=== PATIENT | male | born 1970 | race Caucasian/White ===

== ENCOUNTER 2022-02-16 09:44 | Day surgery (SDC) | payer OTHER, SELFPAY ==
[~2022-02-16] VITALS: Ht 165.1 cm; Wt 73.5 kg
[2022-02-16] MEDS ORDERED: LIDOCAINE 2% 1000 MG/50 ML VIAL INJ ONE (11:32)
[2022-02-16] MEDS ORDERED: fentaNYL citrate 0.05 MG/ML VIAL ONE (11:34)
[2022-02-16] MEDS ORDERED: LIDOCAINE 2% 100 MG/5 ML UJET TP ONE (11:34)
[2022-02-16] MEDS ORDERED: fentaNYL citrate 0.05 MG/ML VIAL IVP ONE (12:20)
== END 2022-02-16 12:30 | disposition home or self-care (01) ==
LOC: MDS 09:44 → MMU 09:52 → MDS 12:30
PROVIDERS: ATTEND Internal Medicine Gastroenterology
DX: Z12.11 Encounter for screening for malignant neoplasm of colon (principal); C18.9 Malignant neoplasm of colon, unspecified; Z90.49 Acquired absence of other specified parts of digestive tract; Z86.010 Personal history of colon polyps; Z20.822 Contact with and (suspected) exposure to COVID-19; Z79.899 Other long term (current) drug therapy
CPT/HCPCS: 45378; 87426; J3010; J2001

== ENCOUNTER 2023-06-28 10:47 | Day surgery (SDC) | payer OTHER ==
[2023-06-28] MEDS ORDERED: fentaNYL citrate 0.05 MG/ML VIAL ONE (12:05)
[2023-06-28] MEDS ORDERED: LIDOCAINE 2% 100 MG/5 ML UJET TP ONE (12:05)
[2023-06-28] MEDS ORDERED: MIDAZOLAM 2 MG/2 ML VIAL ONE (12:05)
[2023-06-28] MEDS ORDERED: fentaNYL citrate 0.05 MG/ML VIAL IVP ONE (12:45)
== END 2023-06-28 13:15 | disposition home or self-care (01) ==
LOC: MDS 10:47 → MMU 10:48 → MDS 13:15
PROVIDERS: ATTEND Internal Medicine Gastroenterology
DX: Z08 Encounter for follow-up examination after completed treatment for malignant neoplasm (principal); C18.9 Malignant neoplasm of colon, unspecified; Z85.038 Personal history of other malignant neoplasm of large intestine; I10 Essential (primary) hypertension
CPT/HCPCS: 45378; J3010; J2250